=== PATIENT | female | born 1935 | race Caucasian/White ===

== ENCOUNTER → 2016-06-20 | Outpatient (CLI) | payer BC ==
[~2016-06-20] MED LIST: ASCO10003 PO; CALC-343 PO; COEN50CA22 PO; CRG3125 PO; LSN5 PO; LSX20 PO; MULT-506 PO; OMEGCAP2 PO; SIMV20TA2 PO; TYLOTC500 PO
--- NOTE | 2016-06-20 11:02 | DIAGNOSTIC IMAGING REPORT ---
THYROID ULTRASONOGRAPHY CLINICAL HISTORY: Thyroid nodule COMPARISON STUDY: CT angiogram of the chest dated 04/07/2016 FINDINGS: The right lobe of thyroid measures 39 x 14 x 17 mm. There is a hyperechoic 9 x 7 x 7 mm nodule within the lateral aspect of the gland. The left lobe of thyroid measures 34 x 16 x 18 mm. There is a mixed echogenicity nodule within the mid to upper portion of the gland measuring 15 x 10 x 12 mm. Both lobes of thyroid are slightly heterogeneous in echotexture. IMPRESSION: Bilateral thyroid nodules. The largest is a mixed echogenicity wider than tall, with a hypoechoic halo, left lobe nodule measuring 15 mm in long axis. Electronically signed by: Parminder Mercer M.D. 06/20/2016 11:00 AM Dictated Date/Time: 06/20/2016 10:56 AM
== END | disposition home or self-care (01) ==
LOC: C.ULTR 10:26
PROVIDERS: ATTEND Internal Medicine
DX: E04.1 Nontoxic single thyroid nodule (principal)

== ENCOUNTER → 2016-08-31 | Outpatient (CLI) | payer BC ==
[2016-08-31 09:56] LABS: ALT/SGPT 19 U/L (12-78); AST/SGOT 14 U/L (15-37); BLOOD UREA NITROGEN 15 mg/dl (7-18); BUN/CREATININE RATIO 21.5 (10-20); CARBON DIOXIDE 29 mmol/L (21-32); CHLORIDE 105 mmol/L (98-107); CHOLESTEROL 200 mg/dl (0-200); CREATININE 0.71 mg/dl (0.60-1.20); GLUCOSE 101 mg/dl (70-99); POTASSIUM 3.9 mmol/L (3.5-5.1); SODIUM 140 mmol/L (136-145); TRIGLYCERIDES 78 mg/dl (0-150); VERY LOW DENSITY LIPOPROT CALC 16 mg/dl
[2016-08-31 10:04] LABS: ALB/GLOB RATIO 1.1 (0.9-2); ALKALINE PHOSPHATASE 91 U/L (45-117); CHOLESTEROL/HDL RATIO 2.8; HDL CHOLESTEROL 71 mg/dl; LDL CHOLESTEROL CALCULATED 113 mg/dl
== END | disposition home or self-care (01) ==
LOC: C.LAB1850 08:28
PROVIDERS: ATTEND Internal Medicine
DX: E78.5 Hyperlipidemia, unspecified (principal); E55.9 Vitamin D deficiency, unspecified; E04.2 Nontoxic multinodular goiter; R73.9 Hyperglycemia, unspecified; I42.8 Other cardiomyopathies; I10 Essential (primary) hypertension

== ENCOUNTER → 2016-09-26 | Outpatient (CLI) | payer BC ==
--- NOTE | 2016-09-27 14:35 | MAMMOGRAPHY REPORT ---
BILATERAL DIGITAL SCREENING MAMMOGRAM WITH CAD: 09/26/2016 CLINICAL HISTORY: Routine screening. Patient has no complaints. TECHNIQUE: Bilateral CC and MLO views were obtained. Current study was also evaluated with a Comput er Aided Detection (CAD) system. COMPARISON: Comparison is made to exams dated: 09/14/2015 mammogram, 09/08/2014 mammogram, 09/03/2013 ma mmogram, 03/05/2013 mammogram, 02/24/2013 mammogram - [facility], and 01/30/2012 mamm ogram. BREAST COMPOSITION: The tissue of both breasts is extremely dense, which lowers the sensitivity of mammography. FINDINGS: The parenchymal pattern is similar to prior mammograms. There are a few benign rim calci fications in the breasts. No developing mass, architectural distortion or cluster of suspicious william rocalcifications is seen. IMPRESSION: ACR BI-RADS CATEGORY 2: BENIGN There is no mammographic evidence of malignancy. A 1 year screening mammogram is recommended. The p atient will receive written notification of the results. Approximately 10% of breast cancers are not detected with mammography. A negative mammographic repor t should not delay biopsy if a clinically suggestive mass is present. Becky Rivera M.D. ay/:09/26/2016 16:58:25 Pre Kindergarten Teacher: Shey Ibarra, [facility] letter sent: Normal 1/2 BI-RADS Code: ACR BI-RADS Category 2: Benign
== END | disposition home or self-care (01) ==
LOC: C.MAMM 12:46
PROVIDERS: ATTEND Internal Medicine
DX: Z12.31 Encounter for screening mammogram for malignant neoplasm of breast (principal)

== ENCOUNTER → 2016-10-04 | Outpatient (CLI) | payer BC ==
[2016-10-04 13:52] LABS: BLOOD UREA NITROGEN 18 mg/dl (7-18); BUN/CREATININE RATIO 29.1 (10-20); CALCIUM 9.8 mg/dl (8.5-10.1); CARBON DIOXIDE 29 mmol/L (21-32); CHLORIDE 107 mmol/L (98-107); CREATININE 0.63 mg/dl (0.60-1.20); GLUCOSE 90 mg/dl (70-99); POTASSIUM 4.2 mmol/L (3.5-5.1); SODIUM 142 mmol/L (136-145)
== END | disposition home or self-care (01) ==
LOC: C.LAB1850 12:11
PROVIDERS: ATTEND Physician Assistant
DX: I10 Essential (primary) hypertension (principal)

== ENCOUNTER → 2017-02-08 | Outpatient (CLI) | payer BC ==
[2017-02-08 10:49] LABS: FERRITIN 159.5 ng/ml (8.0-388.0)
[2017-02-12 07:11] LABS: ALBUMIN 4.3 G/DL (3.8-4.8); ALBUMIN % 58.75 %; ALPHA-2-GLOBULIN % 7.39 %; BETA GLOBULIN % 17.52 %; CREATININE UR 88 MG/DL (20-320); GAMMA GLOBULIN 1.1 G/DL (0.8-1.7); GAMMA GLOBULIN % 10.14 %; TOTAL PROTEIN 7.2 G/DL (6.2-8.3)
== END | disposition home or self-care (01) ==
LOC: C.LAB1850 08:55
PROVIDERS: ATTEND Internal Medicine Cardiovascular Disease
DX: I77.810 Thoracic aortic ectasia (principal); I10 Essential (primary) hypertension; I08.0 Rheumatic disorders of both mitral and aortic valves; I42.8 Other cardiomyopathies

== ENCOUNTER → 2017-06-12 | Outpatient (CLI) | payer BC ==
--- NOTE | 2017-06-12 12:00 | DIAGNOSTIC IMAGING REPORT ---
SOFT TISS HEAD/NECK-THYROID HISTORY: Thyroid nodule E04.2 Multiple thyroid [id number] COMPARISON: 06/20/2016 FINDINGS: Right lobe: Maximum dimension 4.2 cm. Heterogeneous internal architecture. 9 x 1.0 cm right thyroid nodule similar to the prior exam. Left lobe: Maximum dimension 4.0 cm. Heterogeneous internal architecture. Mixed echogenicity mid nodule measuring 1.5 x 1.2 cm. Isthmus: No nodules. IMPRESSION: Heterogeneous multinodular thyroid. No significant change from the prior exam . Stable bilateral nodules. The above report was generated using voice recognition software. It may contain grammatical, syntax or spelling errors. Electronically signed by: Jono Masters M.D. 06/12/2017 11:58 AM Dictated Date/Time: 06/12/2017 11:57 AM
== END | disposition home or self-care (01) ==
LOC: C.ULTR 10:29
PROVIDERS: ATTEND Internal Medicine Endocrinology, Diabetes & Metabolism
DX: E04.2 Nontoxic multinodular goiter (principal)

== ENCOUNTER → 2017-07-17 | Outpatient (CLI) | payer BC | END | disposition home or self-care (01) | LOC: C.MAMM 09:45 | PROVIDERS: ATTEND Internal Medicine | DX: M85.80 Other specified disorders of bone density and structure, unspecified site (principal); Z78.0 Asymptomatic menopausal state; M81.0 Age-related osteoporosis without current pathological fracture ==

== ENCOUNTER → 2017-07-31 | Outpatient (CLI) | payer BC ==
[2017-07-31 10:02] LABS: BLOOD UREA NITROGEN 14 mg/dl (7-18); CALCIUM 9.1 mg/dl (8.5-10.1); CARBON DIOXIDE 27 mmol/L (21-32); CHOLESTEROL 191 mg/dl (0-200); CREATININE 0.72 mg/dl (0.60-1.20); GLUCOSE 99 mg/dl (70-99); POTASSIUM 3.8 mmol/L (3.5-5.1); SODIUM 141 mmol/L (136-145)
[2017-07-31 10:13] LABS: LDL CHOLESTEROL CALCULATED 112 mg/dl; TRANSFERRIN 226 mg/dl (200-360)
== END | disposition home or self-care (01) ==
LOC: C.LAB1850 08:30
PROVIDERS: ATTEND Internal Medicine Cardiovascular Disease
DX: E55.9 Vitamin D deficiency, unspecified (principal); I77.810 Thoracic aortic ectasia; I42.8 Other cardiomyopathies; I10 Essential (primary) hypertension; I08.0 Rheumatic disorders of both mitral and aortic valves; E78.5 Hyperlipidemia, unspecified; E04.2 Nontoxic multinodular goiter

== ENCOUNTER → 2017-08-08 | Outpatient (CLI) | payer BC | END | disposition home or self-care (01) | LOC: C.LAB1850 11:03 | PROVIDERS: ATTEND Internal Medicine Cardiovascular Disease | DX: I42.8 Other cardiomyopathies (principal) ==

== ENCOUNTER → 2017-10-04 | Outpatient (CLI) | payer BC ==
--- NOTE | 2017-10-05 14:19 | MAMMOGRAPHY REPORT ---
BILATERAL DIGITAL SCREENING MAMMOGRAM TOMOSYNTHESIS WITH CAD: 10/04/2017 CLINICAL HISTORY: Routine screening. Patient has no complaints. TECHNIQUE: Breast tomosynthesis in addition to standard 2D mammography was performed. Current study was also evaluated with a Computer Aided Detection (CAD) system. COMPARISON: Comparison is made to exams dated: 09/26/2016 mammogram, 09/14/2015 mammogram, 09/08/2014 ma mmogram, 09/03/2013 ultrasound, 09/03/2013 mammogram, and 03/05/2013 mammogram - [facility]. BREAST COMPOSITION: The tissue of both breasts is extremely dense, which lowers the sensitivity of m ammography. FINDINGS: No suspicious masses, calcifications, or areas of architectural distortion are noted in ei ther breast. There has been no significant interval change compared to prior exams. IMPRESSION: ACR BI-RADS CATEGORY 1: NEGATIVE There is no mammographic evidence of malignancy. A 1 year screening mammogram is recommended. The pa tient will receive written notification of the results. Approximately 10% of breast cancers are not detected with mammography. A negative mammographic report should not delay biopsy if a clinically suggestive mass is present. Jayda Glass M.D. /:10/04/2017 15:00:07 Integrated Logistics Support Manager: Shey Ibarra, [facility] letter sent: Normal 1/2 BI-RADS Code: ACR BI-RADS Category 1: Negative
== END | disposition home or self-care (01) ==
LOC: C.MAMM 13:41
PROVIDERS: ATTEND Internal Medicine
DX: Z12.31 Encounter for screening mammogram for malignant neoplasm of breast (principal)

== ENCOUNTER → 2017-10-17 | Outpatient (CLI) | payer BC | END | disposition home or self-care (01) | LOC: C.PATHSPEC 14:35 | PROVIDERS: ATTEND Dermatology | DX: L82.1 Other seborrheic keratosis (principal) ==

== ENCOUNTER 2024-06-27 13:40 | Observation (INO) ==
[2024-06-27 14:15] LABS: Basophils # (auto) 0.04 K/uL (0.00-0.20); Basophils % (auto) 0.6 %; Eosinophils # (auto) 0.11 K/uL (0.00-0.50); Eosinophils % (auto) 1.6 %; Hematocrit (blood only) 39.1 % (37.0-47.0); Hemoglobin 13.7 g/dl (12.0-16.0); Immature Granulocytes # (auto) 0.01 K/uL (0.01-0.20); Immature Granulocytes % (auto) 0.1 %; Lymphocytes # (auto) 2.38 K/uL (1.20-3.40); Lymphocytes % (auto) 34.6 %; Mean Corpuscular Hemoglobin 30.7 pg (25.0-34.0); Mean Corpuscular Volume 87.7 fL (80.0-100.0); Mean Platelet Volume 9.8 fL (9.4-12.4); Monocytes # (auto) 0.64 K/uL (0.11-0.59); Monocytes % (auto) 9.3 %; Neutrophils % (auto) 53.8 %; Platelet Count 201 K/uL (130-400); RDW Coefficient of Variation 13.6 % (11.5-14.5); RDW Standard Deviation 43.9 fL (36.4-46.3); Red Blood Count 4.46 M/uL (4.20-5.40); White Blood Count 6.88 K/ul (4.8-10.8)
[2024-06-27 14:49] LABS: Albumin Globulin Ratio 1.3 (0.9-2); Albumin Level 4.1 gm/dl (3.4-5.0); BUN Creatinine Ratio 18.7 (10-20); Bilirubin,Total 0.7 mg/dl (0.2-1.0); Calcium 9.7 mg/dl (8.6-10.3); Creatinine Clr Calc Pharmacy 57.2 ml/min; Globulin 3.1 gm/dl (2.5-4.0); Potassium 4.1 mmol/L (3.5-5.1); Total Protein 7.2 gm/dl (6.0-8.3)
[2024-06-27 14:55] LABS: Troponin I High Sensitivity 13.4 pg/ml (0-14)
--- NOTE | 2024-06-27 15:09 | XRay Report ---
XR chest 1V portable CLINICAL HISTORY: Chest pain, nonspecific COMPARISON STUDY: 05/15/2024 FINDINGS: There is mild cardiomegaly without pulmonary vascular congestion. No effusion, consolidatio n, or pneumothorax. No acute osseous findings. IMPRESSION: No acute findings. ACT 112: Negative or not required by law. Electronically signed by: Mike Garvey M.D. 06/27/2024 3:07 PM
[2024-06-27 15:15] LABS: INR 1.1 (0.9-1.1); Partial Thromboplastin Ratio 1.1; Partial Thromboplastin Time 29 Seconds (21-31); Prothrombin Time 12.1 Seconds (9.0-12.0)
--- NOTE | 2024-06-27 15:26 | Emergency Department Note ---
Impression & Plan Pulmonary embolism, PEREZ (dyspnea on exertion) ED Provider Note NAME: PATRICIA GAN AGE: 89 SEX: F : 1935 ARRIVES VIA: Walk-In INFORMANT: Patient, ED PROVIDER(S): Regis Calvillo DO CHIEF COMPLAINT: Shortness of breath HPI: The patient is an 89-year-old female who presented to the emergency department for an evaluation of shortness of breath. The patient has been experiencing shortness of breath over the last several weeks. She was seen by cardiology. She has a history of nonischemic cardiomyopathy. She also has a history of an ascending aorta. She had a cardiac workup but no answer to her shortness of breath could be found. She subsequently had a CT of the chest which revealed pulmonary emboli. She was sent to the emergency department for further evaluation. The patient denies having chest pain. She denies having any leg swelling or recent travel. ROS: See above HPI for pertinent positives & negatives. A total of 10 systems reviewed and were otherwise negative. PAST MEDICAL HISTORY: See Below PAST SURGICAL HISTORY: See Below FAMILY HISTORY: See Below SOCIAL HISTORY: See Below HOME MEDICATIONS: See Below ALLERGIES: See Below VITALS: See Below PHYSICAL EXAMINATION: GENERAL: Patient is awake alert in no acute distress patient is resting comfortably and showing no signs of anxiety EYES: The conjunctivae are clear. The pupils are round and reactive. EARS, NOSE, MOUTH AND THROAT: The nose is without any evidence of any deformity. NECK: The neck is nontender and supple. RESPIRATORY: Normal respiratory effort is noted there is no evidence of wheezing rhonchi or rales CARDIOVASCULAR: Regular rate and rhythm noted there no murmurs rubs or gallops normal S1 normal S2. GASTROINTESTINAL: The abdomen is soft. Abdomen is nontender. MUSCULOSKELETAL/EXTREMITIES: There is no evidence of gross deformity full range of motion is noted in the hips and shoulders. SKIN: There is no obvious evidence of any rash. Skin was warm and dry. There is no significant pedal edema. NEUROLOGIC: Patient is awake alert and oriented x3 strength is symmetric patellar reflexes are 2+ bilaterally MEDICAL DECISION MAKING: The patient is an 89-year-old female who presented to the emergency department for an evaluation of shortness of breath with exertion. The patient started having symptoms in early May. She had a complete cardiac workup with her primary cardiology group. The patient did not have any specific cause for her shortness of breath. For this reason on her most recent visit she was ordered a CAT scan of the of the chest to rule out pulmonary embolism. The CT was positive for bilateral PE with significant clot burden. The patient was sent to the emergency department for further evaluation. The patient had reassuring vital signs but given the clot burden she was started on IV heparin in the emergency department. I [facility] condition [facility] They have agreed to evaluate the patient in the emergency department. Triage Nursing notes reviewed. Prior medical records reviewed Vital Signs: reviewed and remarkable for no significant abnormalities Differential diagnosis: Reactive airway disease, pneumonia, pneumothorax, COPD, CHF, infections, cardiac ischemia, pulmonary embolism, musculoskeletal, gastrointestinal, as well as other pathologies. ER treatment provided: See below Diagnostics interpreted by me: ECG: EKG was obtained in the emergency department. My interpretation is normal sinus rhythm at 80 bpm. There were no PVCs noted. Nonspecific T wave inversions were noted in the inferior and low lateral leads. This was compared to a tracing from May 06, 2024. No changes were noted. Cardiac Monitoring: An order was placed for continuous cardiac monitoring. The monitor shows a rate of 71 bpm with sinus rhythm. Laboratory studies: As stated above and show below. Imaging studies: See below. Radiographic imaging was reviewed by myself Consultation(s): I discussed this case with Dr. Gonzalez who is [facility]. ED COURSE: Procedures: none Critical Care: I have personally spent greater than 35 minutes of critical care time in the direct management of this patient. This includes bedside care, interpretation of diagnostic studies, and testing, discussion with consultants, patient, and family members, and other required patient management activities. This 35 minutes is in excess of all separately billable procedures. Past Med/Surg History Problem List (Updated 06/27/24 @ 20:59 by Regis Calvillo DO) PEREZ (dyspnea on exertion) (Acute) Pulmonary embolism (Acute) Emphysema lung Osteoarthritis of left ankle Pes anserinus tendinitis Abnormal mammogram of both breasts SOBOE (shortness of breath on exertion) Left ankle pain Low back pain Hyperpigmented skin lesion Urinary frequency Vitamin D deficiency (Acute) Osteoporosis (Acute) Nonischemic cardiomyopathy (Acute) Multiple thyroid nodules (Acute) Mitral and aortic regurgitation (Acute) Hypopigmentation (Acute) Hypertension (Acute) Hyperlipidemia (Acute) Hyperglycemia (Acute) History of palpitations (Acute) Former smoker (Acute) Atypical nevi (Acute) Ascending aorta dilatation (Acute) Actinic keratosis (Acute) Medical History Contusion of bone Left foot pain Impacted cerumen of right ear Localized swelling, mass and lump, lower limb, bilateral Neoplasm of uncertain behavior of skin Surgical History S/P parathyroidectomy H/O vein stripping Hx of tubal ligation Hx of tonsillectomy Family History Mother Coronary heart disease Father Hypertension Sister Breast cancer Cardiac arrest Multiple sclerosis Denies family history of Ovarian cancer Prostate cancer Myocardial infarction Lung cancer Colorectal cancer Stroke Social History Smoking Status: Former smoker Age Started Using Tobacco: 23; Age Quit Using Tobacco: 30; packs per day: 0.5; Smoking End Date: ; Hx Alcohol Use: No Hx Substance Use: No Preferred Language: Indonesian Communication Ability: Effective Visual Impairment: No Limitations Hearing Ability: Normal Public Information Coordinator Required: No Beliefs That Will Affect Care: None marital status: Current Living Situation: Alone current occupational status: retired Feels Safe at Home: Yes Safety Concerns: Feels Safe At This Time Dental Care, Regularly: Yes Physical Activity Frequency: Does not Exercise Seatbelt Use: always Sunscreen Use: Yes Assistive Devices: Walker Assistive Devices Comment: Has a walker but does not use Allergies Allergies Allergy/AdvReac Type Severity Reaction Status Date / Time lisinopril Allergy Verified 06/26/24 09:30 Home Meds Home Medications Medication Instructions Recorded Confirmed propylene glycol 1 %-glycerin 0.3 1 drp ophthalmic (eye) BID 11/29/18 06/27/24 % eye drops (Moisture Drops) acetaminophen 500 mg tablet 1,000 mg PO DAILY PRN Pain 02/19/19 06/27/24 ascorbic acid (vitamin C) 1,000 mg 1 gm PO QAM 02/19/19 06/27/24 tablet cholecalciferol (vitamin D3) 50 2,000 units PO QAM #30 caps 02/19/19 06/27/24 mcg (2,000 unit) capsule coenzyme Q10 50 mg capsule 100 mg PO QAM 02/19/19 06/27/24 omega-3 acid ethyl esters 1 gram 1 cap PO BID 02/19/19 06/27/24 capsule calcium 600 mg (as 1 tab PO BID 06/27/24 06/27/24 carbonate)-vitamin D3 10 mcg (400 unit) tablet (Calcium 600 + D(3)) candesartan 32 mg tablet 32 mg PO QDL 06/27/24 06/27/24 multivitamin with minerals 1 tab PO QAM 06/27/24 06/27/24 Previous Rx's Medication Instructions Recorded simvastatin 10 mg tablet 10 mg PO QPM #90 tabs 12/26/23 meclizine 25 mg tablet 25 mg PO QID PRN dizziness #12 tabs 01/20/24 potassium chloride 20 mEq 20 meq PO DAILY PRN On days that 05/06/24 tablet,extended Furosemide is taken #30 tabs release(part/cryst) (Klor-Con M) furosemide 40 mg tablet 40 mg PO DAILY PRN weight gain #30 05/16/24 tabs carvedilol 12.5 mg tablet 12.5 mg PO BID #180 tabs 06/23/24 Results & Data (ED) Vital Signs Vital Signs - 24 hr 06/27/24 13:48 Temperature 36.5 C Temperature Source Oral Pulse Rate 82 Respiratory Rate 20 Respiratory Effort / Characteristics Non-Labored Spontaneous Respiratory Depth Normal Respiratory Pattern Regular Blood Pressure 141/70 H Blood Pressure Mean 93 Pulse Oximetry 94 Oxygen Delivery Method Room Air Sepsis Recent Fever Within 48 Hours No Sepsis New/Unexplained Change in Mental Status No Sepsis Action Taken by Nursing No Action Required Home Medications Current Medication List: was personally reviewed by me Laboratory Data Attestation: I reviewed the patient's lab results. 06/27/24 14:02 06/27/24 14:02 Lab Results 06/27/24 Range/Units 14:02 WBC 6.88 (4.8-10.8) K/ul RBC 4.46 (4.20-5.40) M/uL Hgb 13.7 (12.0-16.0) g/dl Hct 39.1 (37.0-47.0) % MCV 87.7 (80.0-100.0) fL MCH 30.7 (25.0-34.0) pg MCHC 35.0 (32.0-36.0) g/dL RDW Std Deviation 43.9 (36.4-46.3) fL RDW Coeff of Luz Maria 13.6 (11.5-14.5) % Plt Count 201 (130-400) K/uL MPV 9.8 (9.4-12.4) fL Immature Gran % (Auto) 0.1 % Neut % (Auto) 53.8 % Lymph % (Auto) 34.6 % Snyder % (Auto) 9.3 % Eos % (Auto) 1.6 % Baso % (Auto) 0.6 % Neut # (Auto) 3.70 (1.40-6.50) K/uL Lymph # (Auto) 2.38 (1.20-3.40) K/uL Snyder # (Auto) 0.64 H (0.11-0.59) K/uL Eos # (Auto) 0.11 (0.00-0.50) K/uL Baso # (Auto) 0.04 (0.00-0.20) K/uL Immature Gran # (Auto) 0.01 (0.01-0.20) K/uL PT 12.1 H (9.0-12.0) Seconds INR 1.1 (0.9-1.1) APTT 29 (21-31) Seconds PTT Ratio 1.1 Sodium 135 L (136-145) mmol/L Potassium 4.1 (3.5-5.1) mmol/L Chloride 102 (98-107) mmol/L Carbon Dioxide 25 (21-32) mmol/L Anion Gap 8 (3-11) BUN 14 (6-23) mg/dl Creatinine 0.75 (0.6-1.2) mg/dl Est Cr Clr Drug Dosing 57.2 ml/min eGFR 77.01 BUN/Creatinine Ratio 18.7 (10-20) Glucose 130 H (70-99(Fasting)) mg/dl Calcium 9.7 (8.6-10.3) mg/dl Total Bilirubin 0.7 (0.2-1.0) mg/dl AST 16 (13-39) U/L ALT 9 (7-52) U/L Alkaline Phosphatase 78 (34-104) U/L Troponin I High Sens 13.4 (0-14) pg/ml Total Protein 7.2 (6.0-8.3) gm/dl Albumin 4.1 (3.4-5.0) gm/dl Globulin 3.1 (2.5-4.0) gm/dl Albumin/Globulin Ratio 1.3 (0.9-2) Administered Medications Calcium/Vitamin D (Calcium 600mg + Vit D 400 Iu Tab) 1 tab PO BID GABI Stop: 07/27/24 20:59 Last Admin: 06/27/24 20:29 Dose: 1 tab Documented By: CONNIE Carvedilol (Carvedilol 12.5 Mg Tab) 12.5 mg PO BID GABI Stop: 07/27/24 20:59 Last Admin: 06/27/24 20:28 Dose: 12.5 mg Documented By: CONNIE Heparin Sodium/Dextrose (Heparin 48630 Unit/500 Ml) 25,000 units in 500 mls @ 25 mls/hr IV .Q20H GABI; Protocol Stop: 07/27/24 15:44 Last Titration: 06/27/24 19:07 Dose: 1,250 units/hr, 25 mls/hr Documented By: CONNIE Co-signed By: TRA Admin: 06/27/24 15:55 Dose: 1,250 units/hr, 25 mls/hr Documented By: ANGELITA Co-signed By: Simvastatin (Simvastatin 10 Mg Tab) 10 mg PO QPM [facility] Stop: 07/27/24 20:59 Last Admin: 06/27/24 20:29 Dose: 10 mg Documented By: CONNIE Discontinued Medications Heparin Sodium (Porcine) (Heparin Sod (Porcine) 1000 Unit/Ml) 1 units IV NOW ONE Stop: 06/27/24 15:36 Last Admin: 06/27/24 15:55 Dose: 5,000 units Documented By: ANGELITA Co-signed By: Heparin Sodium/Dextrose (Heparin Iv Adult Wt-Based Standard W/ Initial Bolus Protocol) 1 each IV NOW STA; Protocol Stop: 06/27/24 15:20 Last Admin: 06/27/24 15:56 Dose: Not Given Documented By: ANGELITA Imaging Data Attestation: I personally reviewed and interpreted this imaging study as follows: My Impression: 1 view chest x-ray was obtained in the emergency department. My interpretation is no free air or definite infiltrate, final report below. Radiologist's Impression: Chest X-Ray 06/27/24 13:51 XR chest 1V portable CLINICAL HISTORY: Chest pain, nonspecific COMPARISON STUDY: 05/15/2024 FINDINGS: There is mild cardiomegaly without pulmonary vascular congestion. No effusion, consolidation, or pneumothorax. No acute osseous findings. IMPRESSION: No acute findings. ACT 112: Negative or not required by law. Electronically signed by: Mike Garvey M.D. 06/27/2024 3:07 PM Discharge Plan Visit Data Chief Complaint: Shortness of Breath/Dyspnea Stated Complaint: BLOOD CLOTS IN LUNGS, CALLED TO COME IN ED Provider: Regis Calvillo Discharge Problem: Pulmonary embolism, PEREZ (dyspnea on exertion) Patient Disposition: Admitted As Inpatient Discharge Instructions Interventions: ED Discharge Assessment Last Done: 06/27/24 16:40 Discharge Problem: Pulmonary embolism Qualifiers: Pulmonary embolism type: unspecified Chronicity: acute Acute cor pulmonale presence: unspecified Qualified Code(s): I26.99 - Other pulmonary embolism without acute cor pulmonale
[2024-06-27] MEDS: HEPARIN SOD (PORCINE) 1000 UNIT/ML IV ONE (15:55)
[2024-06-27] MEDS: HEPARIN 25000 UNIT/500 ML 25,000 UNITS/500 ML BAG IV SCH (15:55)
[2024-06-27] MEDS: Heparin IV Adult Wt-Based Standard w/ INITIAL Bolus Protocol IV STA (15:56)
--- NOTE | 2024-06-27 17:24 | Electrocardiogram Report ---
Test Reason : Blood Pressure : */* mmHG Vent. Rate : 80 BPM Atrial Rate : 80 BPM P-R Int : 172 ms QRS Dur : 86 ms QT Int : 364 ms P-R-T Axes : 70 -27 -50 degrees QTcB Int : 419 ms Normal sinus rhythm Minimal voltage criteria for LVH, may be normal variant Nonspecific ST abnormality Abnormal ECG When compared with ECG of 06-May-2024 13:05, Premature atrial complexes are no longer Present MT interval has decreased Confirmed by Nik Yan ([id number]) on 06/27/2024 5:23:55 PM Referred By: Confirmed By: Nik Yan
--- NOTE | 2024-06-27 17:35 | Ultrasound Report ---
EXAM: US Duplex Bilateral Lower Extremities Veins INDICATION: PE. TECHNIQUE: Real-time duplex ultrasound scan of the bilateral lower extremity veins integrating B-mode two-dimensional vascular structure, Doppler spectral analysis, color flow Doppler imaging and compression. COMPARISON: No relevant prior studies available. FINDINGS: Right deep veins: No DVT in the right common femoral or femoral veins. The veins demonstrate normal color flow, are normally compressible, with normal phasic flow and/or augmentation response. The popliteal vein is occluded. The posterior tibial and peroneal veins in the calf are occluded. Right superficial veins: No abnormality noted. No thrombus in the visualized right great saphenous vein. Left deep veins: No DVT in the left common femoral, femoral or popliteal veins. The veins demonstrate normal color flow, are normally compressible, with normal phasic flow and/or augmentation response. Left superficial veins: No abnormality noted. No thrombus in the visualized left great saphenous vein. Soft tissues: No abnormality noted. IMPRESSION: 1. Positive occlusive deep venous thrombosis right popliteal, peroneal and posterior tibial veins. 2. No deep venous thrombosis of the left lower extremity. ACT 112: Negative or not required by law. Electronically signed by Kristen Tomlinson 06-27-2024 5:35 PM
[2024-06-27] MEDS ORDERED: ACETAMINOPHEN 325 MG TAB PO PRN (17:40)
[2024-06-27] MEDS ORDERED: ACETAMINOPHEN 500 MG TAB PO PRN (20:05)
[2024-06-27] MEDS: carvediloL 12.5 MG TAB PO SCH (20:28)
[2024-06-27] MEDS: SIMVASTATIN 10 MG TAB PO SCH (20:29)
[2024-06-27] MEDS: CALCIUM 600MG + VIT D 400 IU TAB PO SCH (20:29)
[2024-06-27] MEDS: PROPYLENE GLYCOL GLYCERIN OP SCH (21:55)
--- NOTE | 2024-06-27 22:03 | History & Physical Report ---
Date of Service June 27, 2024 Assessment & Plan (1) Pulmonary embolism: Plan: IV heparin, no need for TTE as had one recently while presumably she had the PE US venous doppler to assess for pelvic compression given unknown cause Since unprovoked recommend 6 months of treatment Incentive spirometer for developing pulmonary infarction Plan Non ischemic cardiomyopathy - continue carvedilol and candesartan, no current heart failure VTE Prophylaxis - IV heparin Diet - low Na, heart healthy Disposition - admit to PCU Admission and Anticipated Discharge Date Admission Date: June 27, 2024 History of Present Illness Chief Complaint: Abnormal outpatient CT Primary Care Provider: Nimo Everett MD Erica Edwards is an 89 year old female who presents to the ER after outpatient CT ordered by cardiology showed bilateral pulmonary emboli. She reports ongoing shortness of breath since beginning of May progressively getting worse with no effect of Lasix initially given by cardiology. She denies any recent surgeries or long haul flights/car trips in the last 6 months. No leg pain or swelling. No prior history of DVT or PE. She reports reduced moving around but puts this down to her recent shortness of breath and was more active proceeding this. Allergies Allergy/AdvReac Type Severity Reaction Status Date / Time lisinopril Allergy Verified 06/26/24 09:30 Home Medications Medication Instructions Recorded Confirmed Type propylene glycol 1 %-glycerin 0.3 1 drp ophthalmic (eye) BID 11/29/18 06/27/24 History % eye drops (Moisture Drops) acetaminophen 500 mg tablet 1,000 mg PO DAILY PRN Pain 02/19/19 06/27/24 History ascorbic acid (vitamin C) 1,000 mg 1 gm PO QAM 02/19/19 06/27/24 History tablet cholecalciferol (vitamin D3) 50 2,000 units PO QAM #30 caps 02/19/19 06/27/24 History mcg (2,000 unit) capsule coenzyme Q10 50 mg capsule 100 mg PO QAM 02/19/19 06/27/24 History omega-3 acid ethyl esters 1 gram 1 cap PO BID 02/19/19 06/27/24 History capsule simvastatin 10 mg tablet 10 mg PO QPM #90 tabs 12/26/23 06/27/24 Rx meclizine 25 mg tablet 25 mg PO QID PRN dizziness #12 tabs 01/20/24 06/27/24 Rx potassium chloride 20 mEq 20 meq PO DAILY PRN On days that 05/06/24 06/27/24 Rx tablet,extended Furosemide is taken #30 tabs release(part/cryst) (Klor-Con M) furosemide 40 mg tablet 40 mg PO DAILY PRN weight gain #30 05/16/24 06/27/24 Rx tabs carvedilol 12.5 mg tablet 12.5 mg PO BID #180 tabs 06/23/24 06/27/24 Rx calcium 600 mg (as 1 tab PO BID 06/27/24 06/27/24 History carbonate)-vitamin D3 10 mcg (400 unit) tablet (Calcium 600 + D(3)) candesartan 32 mg tablet 32 mg PO QDL 06/27/24 06/27/24 History multivitamin with minerals 1 tab PO QAM 06/27/24 06/27/24 History Past Med/Surg History Problem List (Updated 06/27/24 @ 20:59 by Regis Calvillo DO) PEREZ (dyspnea on exertion) (Acute) Pulmonary embolism (Acute) Emphysema lung Osteoarthritis of left ankle Pes anserinus tendinitis Abnormal mammogram of both breasts SOBOE (shortness of breath on exertion) Left ankle pain Low back pain Hyperpigmented skin lesion Urinary frequency Vitamin D deficiency (Acute) Osteoporosis (Acute) Nonischemic cardiomyopathy (Acute) Multiple thyroid nodules (Acute) Mitral and aortic regurgitation (Acute) Hypopigmentation (Acute) Hypertension (Acute) Hyperlipidemia (Acute) Hyperglycemia (Acute) History of palpitations (Acute) Former smoker (Acute) Atypical nevi (Acute) Ascending aorta dilatation (Acute) Actinic keratosis (Acute) Medical History Contusion of bone Left foot pain Impacted cerumen of right ear Localized swelling, mass and lump, lower limb, bilateral Neoplasm of uncertain behavior of skin Surgical History S/P parathyroidectomy H/O vein stripping Hx of tubal ligation Hx of tonsillectomy Family History Mother Coronary heart disease Father Hypertension Sister Breast cancer Cardiac arrest Multiple sclerosis Denies family history of Ovarian cancer Prostate cancer Myocardial infarction Lung cancer Colorectal cancer Stroke Social History Smoking Status: Former smoker Age Started Using Tobacco: 23; Age Quit Using Tobacco: 30; packs per day: 0.5; Smoking End Date: 1960s; Hx Alcohol Use: No Hx Substance Use: No Preferred Language: French Communication Ability: Effective Visual Impairment: No Limitations Hearing Ability: Normal Machine Bander And Cellophaner Required: No Beliefs That Will Affect Care: None marital status: Current Living Situation: Alone current occupational status: retired Feels Safe at Home: Yes Safety Concerns: Feels Safe At This Time Dental Care, Regularly: Yes Physical Activity Frequency: Does not Exercise Seatbelt Use: always Sunscreen Use: Yes Assistive Devices: Walker Assistive Devices Comment: Has a walker but does not use Review of Systems Review of Systems: All systems reviewed & are unremarkable except as noted in HPI & below Physical Exam Constitutional: WD/WN, vitals as above Respiratory: normal respiratory effort, lungs clear to auscultation Cardiovascular: RRR, no murmur, no edema Mildly enlarged right calf < 2cm larger than left side Gastrointestinal (Abdomen): normal bowel sounds, soft, nontender, no hepatosplenomegaly Psychiatric: A+Ox3, euthymic affect Results & Data Results & Data Vital Signs (Past 12 Hours) Vital Signs Temp Pulse Pulse Resp BP BP Pulse Ox 06/27/24 20:00 06/27/24 19:37 36.7 C 71 18 135/75 97 06/27/24 17:45 06/27/24 17:45 36.4 C L 66 16 151/74 H 95 06/27/24 16:40 06/27/24 16:16 73 18 95 06/27/24 16:16 73 18 128/78 95 06/27/24 16:16 95 06/27/24 16:04 66 06/27/24 13:48 36.5 C 82 20 141/70 H 94 O2 Del Method 06/27/24 20:00 Room Air 06/27/24 19:37 Room Air 06/27/24 17:45 Room Air 06/27/24 17:45 Room Air 06/27/24 16:40 Room Air 06/27/24 16:16 Room Air 06/27/24 16:16 Room Air 06/27/24 16:16 Room Air 06/27/24 16:04 06/27/24 13:48 Room Air Laboratory Results Abnormal lab results 06/27/24 06/27/24 Range/Units 14:02 22:48 [place] # (Auto) 0.64 H (0.11-0.59) K/uL PT 12.1 H (9.0-12.0) Seconds Heparin Anti-Xa, Unfract 0.95 H* (0.3-0.7) IU/ml Sodium 135 L (136-145) mmol/L Glucose 130 H (70-99(Fasting)) mg/dl Diagnostic Findings CT angio chest PE protocol CT DOSE: 569.44 mGy.cm HISTORY: 89 years-old Female with R06.02 - Shortness of breath. TECHNIQUE: Multiple CTA images of the chest were obtained after the intravenous administration of 112 ml Optiray. Coronal and sagittal MIPS were obtained from the axial data set and were submitted for review. All measurements were obtained according to NASCET criteria. A dose lowering technique was utilized adhering to the principles of ALARA. COMPARISON: Chest radiograph 05/15/2024, CTA chest 04/07/2016 FINDINGS: CTA: Cardiomegaly. Moderate coronary artery calcifications. Atherosclerosis of the aorta. Fusiform dilation of the ascending thoracic aorta at the level of the main pulmonary artery measures 4.5 x 4.7 cm, previously 4.4 x 4.3 cm. No dissection. Large amount of pulmonary emboli noted within the bilateral main, lobar, segmental and subsegmental pulmonary arterial branches. No definite evidence of right heart strain. CT CHEST: Thyroid nodules measure up to 1.7 cm on the left. 1 cm subcarinal lymph node. No additional lymphadenopathy. Trace pleural effusions. No pneumothorax. Mild intralobular septal thickening which may represent a component of pulmonary edema. Bibasilar groundglass densities. 1.6 cm subpleural consolidation of the basal right lower lobe on image 58 series 4. Mild atelectasis with air trapping. Nonspecific distal esophageal wall thickening. No acute fracture. IMPRESSION: 1. Cardiomegaly with large amount of bilateral pulmonary emboli. 2. Nodular consolidation of the basal right lower lobe may represent a developing pulmonary infarct. 3. Fusiform dilation of the ascending thoracic aorta measures up to 4.5 x 4.7 cm, increased in size from the 2016 comparison. Medications Administered ER Medications Given: IV heparin bolus and drip ECG Rate (beats per minute): 80 Rhythm: normal sinus Findings: + nonspecific-ST abn Comparison ECG Date: from (May 06, 2024) Change: no significant change Code Status & VTE Plan Code Status DNR/DNI per patient wishes VTE Prophylaxis Plan VTE Prophylaxis will be ordered: Yes PG Care Time/CCT Total # of Minutes Spent Total Time Spent with Patient: Total time spent is greater than 50% in coordination of care (as documented) at patient's floor/unit and/or counseling patient: Coding Level of Care Code 88996 INT INP/OBS CARE 375MIN Diagnoses Pulmonary embolism I26.99 Acute cor pulmonale presence: unspecified Chronicity: acute Pulmonary embolism type: unspecified (1) Pulmonary embolism Acute cor pulmonale presence: unspecified Chronicity: acute Pulmonary embolism type: unspecified Qualified Code(s): I26.99 - Other pulmonary embolism without acute cor pulmonale
[2024-06-27 23:49] LABS: ANTI-Xa, UFH(UnfractionatedHep 0.95 IU/ml (0.3-0.7)
--- NOTE | 2024-06-28 07:03 | Hospitalist Progress Note ---
Date of Service June 28, 2024 Assessment & Plan (1) Pulmonary embolism: Plan: IV heparin, US venous doppler to assess for pelvic compression given unknown cause Since unprovoked recommend 6 months of treatment Incentive spirometer for developing pulmonary infarction (2) Nonischemic cardiomyopathy: (3) Ascending aorta dilatation: Plan #Pulmonary embolism -Chest CTA showed cardiomegaly with large amount of bilateral pulmonary emboli. Also showed a nodular consolidation of the right lower lobe which may represent pulmonary infarct. -IV heparin initiated in the ED. Will most likely transition to Eliquis. -Duplex ultrasound showed positive DVT in the right popliteal, peroneal, and posterior tibial veins -Since unprovoked recommend 6 months of treatment -Incentive spirometer for developing pulmonary infarction -Patient recently did have echo done on 06/18/2024 which showed an EF of 40-45%. Due to new recent pulmonary emboli will repeat echo at this time. -Consult cardiology. Appreciate recommendations. #Ascending aorta dilatation -Chest CTA showed fusiform dilatation of the ascending thoracic aorta measuring up to 4.5 x 4.7 cm which has increased in size compared to 2016. -Will get TTE as above, consult cardiology. #Non ischemic cardiomyopathy -continue carvedilol and candesartan, no current heart failure VTE Prophylaxis - IV heparin Diet - low Na, heart healthy Disposition - admit to PCU Admission and Anticipated Discharge Date Admission Date: June 27, 2024 Results & Data Results & Data Vital Signs (Past 12 Hours) Vital Signs Temp Pulse Pulse Resp BP Pulse Ox O2 Del Method 06/28/24 02:22 36.7 C 67 18 113/63 92 Room Air 06/27/24 22:54 36.7 C 67 18 149/74 H 93 Room Air 06/27/24 21:43 67 06/27/24 20:00 Room Air 06/27/24 19:37 36.7 C 71 18 135/75 97 Room Air (1) Pulmonary embolism Acute cor pulmonale presence: unspecified Chronicity: acute Pulmonary embolism type: unspecified Qualified Code(s): I26.99 - Other pulmonary embolism without acute cor pulmonale
[2024-06-28 07:25] LABS: ANTI-Xa, UFH(UnfractionatedHep 0.66 IU/ml (0.3-0.7)
[2024-06-28] MEDS: ARTIFICIAL TEARS OP SCH (09:06)
[2024-06-28] MEDS: LOSARTAN POTASSIUM 50 MG TAB PO SCH (10:55)
[2024-06-28] MEDS: APIXABAN 5 MG TABLET PO SCH (10:55)
--- NOTE | 2024-06-28 10:58 | Discharge Summary ---
Date of Service June 28, 2024 Admission HPI Per Admitting Provider Erica Edwards is an 89 year old female who presents to the ER after outpatient CT ordered by cardiology showed bilateral pulmonary emboli. She reports ongoing shortness of breath since beginning of May progressively getting worse with no effect of Lasix initially given by cardiology. She denies any recent surgeries or long haul flights/car trips in the last 6 months. No leg pain or swelling. No prior history of DVT or PE. She reports reduced moving around but puts this down to her recent shortness of breath and was more active proceeding this. Admission Exam Per Admitting Provider Constitutional: WD/WN, vitals as above Respiratory: normal respiratory effort, lungs clear to auscultation Cardiovascular: RRR, no murmur, no edema Mildly enlarged right calf < 2cm larger than left side Gastrointestinal (Abdomen): normal bowel sounds, soft, nontender, no hepatosplenomegaly Psychiatric: A+Ox3, euthymic affect Principal Diagnosis Pulmonary emboli Discharge Exam Constitutional: well-appearing, no acute distress HEENT: NCAT, no conjunctival injection CV: regular rhythm, no murmur appreciated, extremities well-perfused, no LE edema Resp: CTABL, no wheezes/rales/rhonchi appreciated, no increased work of breathing GI: soft, nondistended, nontender, BS normoactive MSK: no gross deformities appreciated Skin: warm, dry, no rash appreciated Neuro: alert, oriented, no focal neurologic deficit appreciated Discharge Data Allergies Allergy/AdvReac Type Severity Reaction Status Date / Time lisinopril Allergy Verified 06/26/24 09:30 Consultations 06/27/24 15:26 ED Decision to Admit Stat Ordered Studies 06/27/24 16:13 US venous doppler LE BI Stat Chest X-Ray 06/27/24 13:51 XR chest 1V portable CLINICAL HISTORY: Chest pain, nonspecific COMPARISON STUDY: 05/15/2024 FINDINGS: There is mild cardiomegaly without pulmonary vascular congestion. No effusion, consolidation, or pneumothorax. No acute osseous findings. IMPRESSION: No acute findings. ACT 112: Negative or not required by law. Electronically signed by: Mike Garvey M.D. 06/27/2024 3:07 PM Venous Doppler Study 06/27/24 16:13 EXAM: US Duplex Bilateral Lower Extremities Veins INDICATION: PE. TECHNIQUE: Real-time duplex ultrasound scan of the bilateral lower extremity veins integrating B-mode two-dimensional vascular structure, Doppler spectral analysis, color flow Doppler imaging and compression. COMPARISON: No relevant prior studies available. FINDINGS: Right deep veins: No DVT in the right common femoral or femoral veins. The veins demonstrate normal color flow, are normally compressible, with normal phasic flow and/or augmentation response. The popliteal vein is occluded. The posterior tibial and peroneal veins in the calf are occluded. Right superficial veins: No abnormality noted. No thrombus in the visualized right great saphenous vein. Left deep veins: No DVT in the left common femoral, femoral or popliteal veins. The veins demonstrate normal color flow, are normally compressible, with normal phasic flow and/or augmentation response. Left superficial veins: No abnormality noted. No thrombus in the visualized left great saphenous vein. Soft tissues: No abnormality noted. IMPRESSION: 1. Positive occlusive deep venous thrombosis right popliteal, peroneal and posterior tibial veins. 2. No deep venous thrombosis of the left lower extremity. ACT 112: Negative or not required by law. Electronically signed by Kristen Tomlinson 06-27-2024 5:35 PM Hospital Course (1) Pulmonary embolism: (2) Nonischemic cardiomyopathy: (3) Ascending aorta dilatation: (4) DVT (deep venous thrombosis): Plan #Pulmonary embolism #DVT -Chest CTA showed cardiomegaly with large amount of bilateral pulmonary emboli. Also showed a nodular consolidation of the right lower lobe which may represent pulmonary infarct. -IV heparin initiated in the ED. Transitioned to Eliquis -Duplex ultrasound showed positive DVT in the right popliteal, peroneal, and posterior tibial veins -Since unprovoked recommend 6 months of treatment and f/u with PCP about ext ended course. -Patient recently did have echo done on 06/18/2024 which showed an EF of 40-45%. Repeat in 3 months or depending on cardiology recommendations. -At time of discharge, VSS. -f/u with PCP in one week. -Started Eliquis 10mg BID for 7 days and then 5mg BID after that. #Ascending aorta dilatation -Chest CTA showed fusiform dilatation of the ascending thoracic aorta measuring up to 4.5 x 4.7 cm which has increased in size compared to 2016. -f/u with cardiology. #Non ischemic cardiomyopathy -continue carvedilol and candesartan, no current heart failure Total Time Total Time Spent Total Time Spent (In Minutes): please refer to attendings note Discharge Plan Discharge Items Patient Disposition: Home - Self-Care Reason For Visit: BILATERAL PULMONARY EMBOLI Discharge Diagnosis: Bilateral pulmonary emboli Activity: Resume your previous activity Non-emergency contact: Primary Care Provider Call non-emergency contact if: you have any medication questions, your pain is concerning for you and your temperature is above 101.5 Follow-up/Referrals: Nimo Everett MD [Primary Care Provider] - 07/02/24 3:00 pm (Hospital follow up with primary care office scheduled on 07/02/24 at 3:00) Diet: Regular Addtl Attending Provider Instructions: You were admitted to the hospital for pulmonary emboli. You were treated with a blood thinner and will continue on this new medication. A discharge summary will be sent to your primary care physician to ensure continuity of care. Please bring this discharge summary with you to your next office appointment so that your provider can review it at that time. Follow-up appointments: * Make a follow-up appointment with your PCP within the next week. It is very important that you follow up with them shortly after discharge from the hospital. * Keep all your follow-up appointments as already scheduled. If you cannot make an appointment, notify your provider. Medications: Your medication list has been reviewed and reconciled upon discharge to ensure accuracy and continuity of care. An updated list of all your medications is included with your hospital discharge paperwork. Please review this list closely, and make note of any changes. * We sent a new medication called Eliquis to your pharmacy. Take Eliquis two tabs (10mg) twice a day for 7 days. Then take one tab (5mg) twice a day. Discuss with PCP with how long you will continue with Eliquis. * If you have any issues filling these prescriptions, please call [phone] and ask to leave a message for Dr. Hickman. * Take your medications as instructed; do not skip a dose of your medicines. Make sure all of your doctors know every medicine you are taking (including [id number] medicines, vitamins, and supplements). Call your primary care provider before taking any new medicines (including over- the-counter medicines, vitamins, and supplements), because some of these may interact with your current medications, or may make your symptoms worse. Tell your primary care provider if you cannot afford your medications. CONTACT YOUR PRIMARY CARE PROVIDER if you experience any of the following: * Worsening of symptoms * Fever, chills, or fatigue * Difficulty following your treatment plan, or difficulty taking medications CALL 911 OR GO TO THE EMERGENCY DEPARTMENT if you experience any of the following: * Sudden, severe abdominal pain or nausea/vomiting * Severe chest pain, or chest pain that radiates (moves) to your jaw or arm * Sudden, severe shortness of breath or difficulty breathing Thank you for allowing us to participate in your care. Pending Studies at Discharge: No Stand-Alone Forms: [facility] MATINAS BIOPHARMA, Smoking Cessation Medications and DC Order Prescriptions: New Eliquis 5 mg (74 tabs) tablets,dose pack 10 mg PO BID Qty: 74 0RF Rx Instructions: 2 tabs (10mg) twice a day for 7 days. Then 1 tab (5mg) twice a day for 7 days. Continued simvastatin 10 mg tablet 10 mg PO QPM Qty: 90 3RF furosemide 40 mg tablet 40 mg PO DAILY PRN (Reason: weight gain) Qty: 30 1RF Rx Instructions: Take 1 tablet by mouth daily until breathing at baseline, then use only as needed. carvedilol 12.5 mg tablet 12.5 mg PO BID Qty: 180 3RF Moisture Drops 1-0.3 % drops 1 drp ophthalmic (eye) BID Rx Instructions: currently refresh cholecalciferol (vitamin D3) 2,000 unit capsule 2,000 units PO QAM Qty: 30 coenzyme Q10 50 mg capsule 100 mg PO QAM omega-3 acid ethyl esters 1 gram capsule 1 cap PO BID ascorbic acid (vitamin C) 1,000 mg tablet 1 gm PO QAM acetaminophen 500 mg tablet 1,000 mg PO DAILY PRN (Reason: Pain) potassium chloride [Klor-Con M20] 20 mEq tablet,ER particles/crystals 20 meq PO DAILY PRN (Reason: On days that Furosemide is taken) Qty: 30 1RF Rx Instructions: Take 1 tablet by mouth daily as needed whenever Furosemide is taken. meclizine 25 mg tablet 25 mg PO QID PRN (Reason: dizziness) Qty: 12 1RF candesartan 32 mg tablet 32 mg PO QDL multivitamin with minerals Tablet 1 tab PO QAM calcium carbonate-vitamin D3 [Calcium 600 + D(3)] 600 mg-10 mcg (400 unit) Tablet 1 tab PO BID Discharge Orders: Discharge Order (Routine); Ordered 06/28/24 Ordered By: Pedro Bell/Other Patient Handouts: DVT Complications, Compression Socks Steps Admission Data Admit Date/Time: 06/27/24 15:47 Attending Provider: Glenda Li Admit Provider: Arnol Gonzalez Primary Care Provider: Nimo Everett V. Other Providers: Arnol Gonzalez Other Interventions: Discharge Summary Assessment (RN) Last Done: 06/28/24 12:01 Supervising Physician Co-Signing Physician Notes Attending Physician Supervision Note: I independently interviewed and examined the patient and verified the llanos history and physical, reviewed labs and image studies and agree with findings and care plan noted above. Consider evaluation for new unprovoked PE.
[2024-06-28 11:59] VITALS: BP 126/79; PULSE 69; RESP 20; TEMP 97.7; O2SAT 96
== END 2024-06-28 13:02 | disposition home or self-care (01) ==
LOC: ED 13:40 → INTOOBSV 15:47 → SUATTDRO 15:47 → 2S 15:47